=== PATIENT | female | born 1975 | race Caucasian/White ===

== ENCOUNTER 2022-09-06 22:12 | Emergency (ER) | payer MEDICAID ==
[~2022-09-06] VITALS: Ht 152.4 cm; Wt 90.7 kg
[2022-09-06] MEDS ORDERED: ACETAMINOPHEN ES 500 MG TABLET ONE (23:20)
--- NOTE | 2022-09-06 23:20 | NUR ---
BIBHUSBAND FOR HTN AND SHUKLA [id number]. WAS RECENTLY PLACED ON NEW ANTIHYPERTENSIVE MEDICATION BY PMD AFTER MOVING FROM [place] ANDHAS BEEN MED COMPLIENT BUT REPORTS SHE HAS REMAINED HYPERTENSIVE AND HAS STARTED DEVELOPING SHUKLA. PT AWAKE AND ALERT X4 BREATHING UNLABORED. PLACED ON MONITOR AND NOTED HYPERTENSIVE. MD WAS AT THE BEDSIDE FOR EVAL.
[2022-09-06] MEDS ORDERED: CLONIDINE HCL 0.1 MG TABLET ONE (23:21)
--- NOTE | 2022-09-06 23:23 | NUR ---
EMT AT BEDSIDE FOR EKG
[2022-09-06] MEDS: ACETAMINOPHEN ES 500 MG TABLET PO ONE (23:24)
[2022-09-06] MEDS: CLONIDINE HCL 0.1 MG TABLET PO ONE (23:24)
[2022-09-07 01:18] LABS: BASOPHILS % (AUTO) 0.3 % (0.0-2.0); EOSINOPHILS % (AUTO) 1.5 % (0.0-6.0); HEMATOCRIT 38 % (33-45); HEMOGLOBIN 12.6 g/dL (11.5-14.8); LYMPHOCYTES # (AUTO) 2.4 K/uL (0.8-4.8); MEAN CORPUSCULAR HGB CONC 33 g/dl (31.0-36.0); MEAN CORPUSCULAR VOLUME 84 fL (82-100); MONOCYTES # (AUTO) 0.5 K/uL (0.1-1.30); MONOCYTES % (AUTO) 4.6 % (2.0-12.0); NEUTROPHILS # (AUTO) 7.1 K/uL (1.8-8.9); NEUTROPHILS % (AUTO) 69.6 % (43.0-81.0); PLATELET COUNT (AUTO) 257 K/uL (150-450); RED BLOOD CELL COUNT(AUTO) 4.52 MIL/uL (4.0-5.2); WHITE BLOOD COUNT (AUTO) 10.2 K/uL (4.3-11.0)
--- NOTE | 2022-09-07 01:25 | NUR ---
PT REPORTS IMPROVEMENT IN HEADACHE ABD DENIES ANY PAIN AT THIS TIME
[2022-09-07 01:36] LABS: CALCIUM, SERUM 9.4 mg/dL (8.5-10.1); CARBON DIOXIDE 26 mmol/L (21-32); CHLORIDE 105 mmol/L (98-107); CREATININE 0.8 mg/dL (0.6-1.3); GLUCOSE 134 mg/dL (74-106); POTASSIUM 3.4 mmol/L (3.5-5.1); SODIUM SERUM 141 mmol/L (136-145); UREA NITROGEN, BLOOD 14 mg/dL (7-18)
[2022-09-07] MEDS ORDERED: CLON0.2T PO (01:59)
--- NOTE | 2022-09-07 02:06 | NUR ---
Patient discharged to home in stable condition. Written and verbal after care instructions given. Patient verbalizes understanding of instruction.
[2022-09-07 02:10] VITALS: BP 156/86
== END 2022-09-07 02:10 | disposition home or self-care (01) ==
LOC: ER 22:16
DX: I10 Essential (primary) hypertension (principal); R51.9 Headache, unspecified; Z60.2 Problems related to living alone
CPT/HCPCS: 36415; 71045-TC; 80048-TC; 84484-TC; 85025-TC